=== PATIENT | female | born 1935 | race Caucasian/White ===

== ENCOUNTER 2022-06-25 09:52 | Inpatient (IN) ==
[2022-06-25] MEDS ORDERED: SODIUM CHLORIDE 0.9% 1,000 ML IV STA (11:40)
[2022-06-25 12:25] LABS: Basophils % 0.3 % (0.0-0.8); Eosinophils % 0.1 % (0.00-10.9); Hematocrit 31.4 VOL% (35.7-47.0); Hemoglobin 10.1 GM/DL (12.0-16.0); Immature Granulocytes % 0.9 %; Immature Granulocytes Absolute 0.09 #; Lymphocytes # 0.8 10*3/uL (1.4-4.0); Lymphocytes % 7.7 % (21.3-54.2); Mean Corpuscular HGB Conc 32.2 GM/DL (32-36); Mean Corpuscular Volume 91.5 FL (87-102); Mean Platelet Volume 10.5 FL (9.6-12.0); Monocytes # 0.7 10*3/uL (0.11-0.8); Monocytes % 7.5 % (1.7-12.7); Neutrophils % 83.5 % (38.7-73.9); Platelet Count 160 T/CUMM (130-400); Red Blood Count 3.43 MC/CUMM (3.8-5.5); Red Cell Distribution Width 15.3 % (9.3-17.3); White Blood Count 9.9 T/CUMM (4-12)
[2022-06-25 12:42] LABS: Albumin 2.3 G/DL (3.4-5.0); Calcium 9.1 MG/DL (8.5-10.1); Osmolality,Calculated 283.2 MOS/KG (273-304); Potassium 4.6 MMOL/L (3.5-5.1); Total Protein 5.9 G/DL (6.4-8.2)
[2022-06-25] MEDS ORDERED: ACETAMINOPHEN 325 MG TABLET PO PRN (13:43)
[2022-06-25 14:29] LABS: INR 1.2; PT Patient Result 12.9 SECS (10.1-12.1); Partial Thromboplastin Time 28.9 SECS (23.7-32.9)
[2022-06-25] MEDS: SODIUM CHLORIDE 0.9% 1,000 ML IV SCH (14:50)
[2022-06-25 17:16] LABS: Amylase,Body Fluid 47 U/L; Glucose,Pleural Fluid 88 MG/DL; LDH,Body Fluid 94 U/L; Total Protein,Body Fluid < 2.0 G/DL
[2022-06-25 19:05] LABS: Bacteria,Urine Few /HPF (Few); Squamous Epithelial Cell,Urine Occasional /HPF (0-10)
[2022-06-25 19:08] LABS: Bilirubin,Urine Negative (Negative); Blood, Urine Trace mg/dL (Negative); Glucose,Urine (UA) Negative (Negative); Ketones,Urine Negative (Negative); Nitrite,Urine Negative (Negative); Protein,Urine Negative (Negative); Urine Appearance Clear (Clear); Urine Color Yellow (Yellow); Urine Specific Gravity > 1.030 (1.001-1.035); Urine Urobilinogen 0.2 eU/dL (<2.0)
[2022-06-25] MEDS: DOCUSATE SODIUM 100 MG CAPSULE PO SCH (20:38)
[2022-06-26 06:32] LABS: Calcium 8.1 MG/DL (8.5-10.1); Osmolality,Calculated 284.1 MOS/KG (273-304)
[2022-06-26 07:07] LABS: Basophils % 0.2 % (0.0-0.8); Eosinophils # 0.2 10*3/uL (0.0-0.87); Eosinophils % 4.9 % (0.00-10.9); Hematocrit 23.9 VOL% (35.7-47.0); Immature Granulocytes % 0.4 %; Immature Granulocytes Absolute 0.02 #; Lymphocytes # 0.8 10*3/uL (1.4-4.0); Lymphocytes % 15.8 % (21.3-54.2); Mean Corpuscular HGB Conc 32.6 GM/DL (32-36); Mean Corpuscular Volume 90.5 FL (87-102); Mean Platelet Volume 10.4 FL (9.6-12.0); Monocytes # 0.4 10*3/uL (0.11-0.8); Monocytes % 7.8 % (1.7-12.7); Neutrophils % 70.9 % (38.7-73.9); Red Cell Distribution Width 15.1 % (9.3-17.3)
[2022-06-26 07:08] LABS: Hemoglobin 7.8 GM/DL (12.0-16.0); Platelet Count 110 T/CUMM (130-400); Red Blood Count 2.64 MC/CUMM (3.8-5.5); White Blood Count 4.7 T/CUMM (4-12)
[2022-06-26] MEDS: PANTOPRAZOLE 40 MG TABLET PO SCH (07:49)
[2022-06-26 08:06] LABS: Hematocrit 26.8 VOL% (35.7-47.0); Hemoglobin 8.5 GM/DL (12.0-16.0)
[2022-06-26] MEDS: METOPROLOL SUCCINATE XL 50 MG TABLET PO SCH (08:56)
[2022-06-26] MEDS: DEXTROSE 5% NACL 0.9% 1,000 ML IV SCH ×2 (08:58→20:10)
[2022-06-26] MEDS: DOCUSATE SODIUM 100 MG CAPSULE PO SCH ×2 (09:03→20:54)
[2022-06-26] MEDS: SODIUM CHLORIDE 0.9% 1,000 ML IV SCH ×2 (09:04)
[2022-06-27] MEDS: DEXTROSE 5% NACL 0.9% 1,000 ML IV SCH ×2 (04:38→15:33)
[2022-06-27] MEDS: PANTOPRAZOLE 40 MG TABLET PO SCH (05:44)
[2022-06-27 06:07] LABS: Basophils % 0.7 % (0.0-0.8); Eosinophils # 0.4 10*3/uL (0.0-0.87); Eosinophils % 8.5 % (0.00-10.9); Hematocrit 25.3 VOL% (35.7-47.0); Hemoglobin 8.1 GM/DL (12.0-16.0); Immature Granulocytes % 0.4 %; Immature Granulocytes Absolute 0.02 #; Lymphocytes # 0.8 10*3/uL (1.4-4.0); Lymphocytes % 16.6 % (21.3-54.2); Mean Platelet Volume 10.3 FL (9.6-12.0); Monocytes # 0.4 10*3/uL (0.11-0.8); Monocytes % 9.4 % (1.7-12.7); Neutrophils % 64.4 % (38.7-73.9); Platelet Count 125 T/CUMM (130-400); Red Blood Count 2.78 MC/CUMM (3.8-5.5); Red Cell Distribution Width 15.1 % (9.3-17.3); White Blood Count 4.6 T/CUMM (4-12)
[2022-06-27 06:23] LABS: Calcium 8.1 MG/DL (8.5-10.1); Potassium 3.6 MMOL/L (3.5-5.1)
[2022-06-27 08:52] LABS: Albumin 1.8 G/DL (3.4-5.0); Bilirubin,Direct 0.15 MG/DL (0.0-0.20); Bilirubin,Indirect 0.4 MG/DL (0.0-1.0); Bilirubin,Total 0.5 MG/DL (0.20-1.00); Total Protein 4.7 G/DL (6.4-8.2)
[2022-06-27] MEDS: METOPROLOL SUCCINATE XL 50 MG TABLET PO SCH (09:12)
[2022-06-27] MEDS: DOCUSATE SODIUM 100 MG CAPSULE PO SCH ×2 (09:20→21:19)
[2022-06-27] MEDS: ENOXAPARIN 30 MG/0.3 ML SYRINGE SUBCUT SCH (21:19)
[2022-06-28] MEDS: DEXTROSE 5% NACL 0.9% 1,000 ML IV SCH ×3 (01:11→09:15)
[2022-06-28] MEDS: PANTOPRAZOLE 40 MG TABLET PO SCH (05:31)
[2022-06-28 06:19] LABS: Basophils # 0.1 10*3/uL (0.0-0.2); Basophils % 0.8 % (0.0-0.8); Eosinophils # 0.6 10*3/uL (0.0-0.87); Eosinophils % 9.9 % (0.00-10.9); Hematocrit 28.4 VOL% (35.7-47.0); Hemoglobin 9.2 GM/DL (12.0-16.0); Immature Granulocytes % 0.8 %; Immature Granulocytes Absolute 0.05 #; Lymphocytes # 1.3 10*3/uL (1.4-4.0); Lymphocytes % 20.3 % (21.3-54.2); Mean Corpuscular HGB Conc 32.4 GM/DL (32-36); Mean Corpuscular Volume 90.7 FL (87-102); Mean Platelet Volume 9.8 FL (9.6-12.0); Monocytes # 0.5 10*3/uL (0.11-0.8); Monocytes % 7.5 % (1.7-12.7); Neutrophils % 60.7 % (38.7-73.9); Platelet Count 193 T/CUMM (130-400); Red Blood Count 3.13 MC/CUMM (3.8-5.5); Red Cell Distribution Width 15.4 % (9.3-17.3); White Blood Count 6.4 T/CUMM (4-12)
[2022-06-28 06:45] LABS: Calcium 8.1 MG/DL (8.5-10.1); Osmolality,Calculated 287.8 MOS/KG (273-304); Potassium 3.6 MMOL/L (3.5-5.1)
[2022-06-28] MEDS: DOCUSATE SODIUM 100 MG CAPSULE PO SCH ×2 (09:15→21:15)
[2022-06-28] MEDS: METOPROLOL SUCCINATE XL 50 MG TABLET PO SCH (09:15)
[2022-06-28] MEDS ORDERED: FUROSEMIDE 20 MG/2 ML VIAL IV ONE (14:00)
[2022-06-28] MEDS: ENOXAPARIN 30 MG/0.3 ML SYRINGE SUBCUT SCH (21:15)
[2022-06-29 05:28] LABS: Eosinophils # 0.3 10*3/uL (0.0-0.87); Eosinophils % 6.8 % (0.00-10.9); Hematocrit 26.5 VOL% (35.7-47.0); Hemoglobin 8.4 GM/DL (12.0-16.0); Immature Granulocytes % 0.5 %; Immature Granulocytes Absolute 0.02 #; Lymphocytes # 0.8 10*3/uL (1.4-4.0); Lymphocytes % 18.6 % (21.3-54.2); Mean Corpuscular HGB Conc 31.7 GM/DL (32-36); Mean Corpuscular Volume 92.3 FL (87-102); Mean Platelet Volume 9.7 FL (9.6-12.0); Monocytes # 0.4 10*3/uL (0.11-0.8); Monocytes % 8.5 % (1.7-12.7); Neutrophils % 64.6 % (38.7-73.9); Platelet Count 149 T/CUMM (130-400); Red Blood Count 2.87 MC/CUMM (3.8-5.5); Red Cell Distribution Width 15.4 % (9.3-17.3); White Blood Count 4.1 T/CUMM (4-12)
[2022-06-29 05:46] LABS: Calcium 8.2 MG/DL (8.5-10.1); Osmolality,Calculated 289.5 MOS/KG (273-304); Potassium 3.8 MMOL/L (3.5-5.1)
[2022-06-29] MEDS: PANTOPRAZOLE 40 MG TABLET PO SCH (05:55)
[2022-06-29] MEDS: METOPROLOL SUCCINATE XL 50 MG TABLET PO SCH (09:09)
[2022-06-29] MEDS: DOCUSATE SODIUM 100 MG CAPSULE PO SCH ×2 (09:09→21:29)
[2022-06-29] MEDS: ENOXAPARIN 30 MG/0.3 ML SYRINGE SUBCUT SCH (21:29)
[2022-06-30 05:32] LABS: Calcium 8.4 MG/DL (8.5-10.1); Osmolality,Calculated 286.7 MOS/KG (273-304); Potassium 4.6 MMOL/L (3.5-5.1)
[2022-06-30] MEDS: PANTOPRAZOLE 40 MG TABLET PO SCH (05:41)
[2022-06-30 06:06] LABS: Basophils % 0.6 % (0.0-0.8); Eosinophils # 0.2 10*3/uL (0.0-0.87); Eosinophils % 5.8 % (0.00-10.9); Hematocrit 25.5 VOL% (35.7-47.0); Hemoglobin 8.2 GM/DL (12.0-16.0); Immature Granulocytes % 0.3 %; Immature Granulocytes Absolute 0.01 #; Lymphocytes # 0.7 10*3/uL (1.4-4.0); Lymphocytes % 19.8 % (21.3-54.2); Mean Corpuscular HGB Conc 32.2 GM/DL (32-36); Mean Corpuscular Volume 92.4 FL (87-102); Mean Platelet Volume 9.7 FL (9.6-12.0); Monocytes # 0.3 10*3/uL (0.11-0.8); Monocytes % 7.8 % (1.7-12.7); Neutrophils % 65.7 % (38.7-73.9); Platelet Count 136 T/CUMM (130-400); Red Blood Count 2.76 MC/CUMM (3.8-5.5); Red Cell Distribution Width 15.4 % (9.3-17.3); White Blood Count 3.4 T/CUMM (4-12)
[2022-06-30] MEDS: METOPROLOL SUCCINATE XL 50 MG TABLET PO SCH (09:03)
[2022-06-30] MEDS: DOCUSATE SODIUM 100 MG CAPSULE PO SCH ×2 (09:03→21:44)
[2022-06-30] MEDS: ENOXAPARIN 30 MG/0.3 ML SYRINGE SUBCUT SCH (21:44)
[2022-07-01] MEDS: PANTOPRAZOLE 40 MG TABLET PO SCH (06:46)
[2022-07-01 07:51] LABS: M. Tuberculosis PCR Result Negative (Negative); M. Tuberculosis PCR Source PLEURAL FLUID
[2022-07-01] MEDS: METOPROLOL SUCCINATE XL 50 MG TABLET PO SCH (08:11)
[2022-07-01] MEDS: DOCUSATE SODIUM 100 MG CAPSULE PO SCH ×2 (10:53→21:26)
[2022-07-02 02:24] LABS: Arterial Base Excess iSTAT -7 MMOL/L (-2.5-2.5); Arterial Bicarbonate iSTAT 17.4 MMOL/L (20-26); Arterial O2 Saturation iSTAT 99 % (95-100); Arterial PCO2 iSTAT 31 MM HG (35-48); Arterial PO2 iSTAT 121 MM HG (80-95); Arterial Total CO2 iSTAT 18 MMO/L (23-27); Arterial pH iSTAT 7.358 (7.35-7.45)
[2022-07-02] MEDS: PANTOPRAZOLE 40 MG TABLET PO SCH (05:40)
[2022-07-02 05:43] LABS: Basophils % 0.8 % (0.0-0.8); Eosinophils # 0.3 10*3/uL (0.0-0.87); Eosinophils % 6.8 % (0.00-10.9); Hematocrit 25.5 VOL% (35.7-47.0); Immature Granulocytes % 0.5 %; Immature Granulocytes Absolute 0.02 #; Lymphocytes # 0.8 10*3/uL (1.4-4.0); Lymphocytes % 21.4 % (21.3-54.2); Mean Corpuscular HGB Conc 31.4 GM/DL (32-36); Mean Corpuscular Volume 92.4 FL (87-102); Mean Platelet Volume 9.9 FL (9.6-12.0); Monocytes # 0.3 10*3/uL (0.11-0.8); Monocytes % 7.6 % (1.7-12.7); Neutrophils % 62.9 % (38.7-73.9); Platelet Count 148 T/CUMM (130-400); Red Blood Count 2.76 MC/CUMM (3.8-5.5); Red Cell Distribution Width 15.4 % (9.3-17.3); White Blood Count 3.7 T/CUMM (4-12)
[2022-07-02 06:00] LABS: Calcium 8.6 MG/DL (8.5-10.1); Osmolality,Calculated 292.3 MOS/KG (273-304); Potassium 3.5 MMOL/L (3.5-5.1)
[2022-07-02] MEDS ORDERED: propofoL 200 MG/20 ML VIAL IV ONE ×2 (07:32→10:24)
[2022-07-02] MEDS ORDERED: LIDOCAINE 2% 5 ML VIAL ONE ×2 (07:32→10:24)
[2022-07-02] MEDS ORDERED: ETOMIDATE 20 MG/10 ML VIAL IV ONE (07:32)
[2022-07-02] MEDS: LACTATED RINGERS 1,000 ML IV SCH ×2 (08:00→14:43)
[2022-07-02] MEDS: METOPROLOL SUCCINATE XL 50 MG TABLET PO SCH (09:05)
[2022-07-02] MEDS: DOCUSATE SODIUM 100 MG CAPSULE PO SCH ×2 (09:05→21:08)
[2022-07-02] MEDS ORDERED: ETOMIDATE 40 MG/20 ML VIAL IV ONE (10:24)
[2022-07-02] MEDS: ONDANSETRON 4 MG/2 ML VIAL IV PRN (11:25)
[2022-07-02] MEDS: PIPERACILLIN/TAZOBACTAM 3,375 MG in SODIUM CHLORIDE 0.9% 100 ML IV SCH ×2 (11:50→22:54)
[2022-07-02 12:24] LABS: Basophils % 0.4 % (0.0-0.8); Eosinophils # 0.3 10*3/uL (0.0-0.87); Eosinophils % 4.2 % (0.00-10.9); Hematocrit 34.6 VOL% (35.7-47.0); Hemoglobin 10.8 GM/DL (12.0-16.0); Immature Granulocytes % 0.3 %; Immature Granulocytes Absolute 0.02 #; Mean Corpuscular HGB Conc 31.2 GM/DL (32-36); Mean Corpuscular Volume 93.5 FL (87-102); Mean Platelet Volume 9.7 FL (9.6-12.0); Monocytes # 0.2 10*3/uL (0.11-0.8); Monocytes % 2.7 % (1.7-12.7); Neutrophils % 77.4 % (38.7-73.9); Platelet Count 221 T/CUMM (130-400); Red Cell Distribution Width 15.4 % (9.3-17.3); White Blood Count 6.9 T/CUMM (4-12)
[2022-07-02] MEDS ORDERED: MORPHINE 2 MG/1 ML SYRINGE IV ONE (14:15)
[2022-07-03] MEDS: LACTATED RINGERS 1,000 ML IV SCH ×2 (04:01→08:49)
[2022-07-03 05:17] LABS: Basophils % 0.2 % (0.0-0.8); Eosinophils # 0.1 10*3/uL (0.0-0.87); Hematocrit 28.2 VOL% (35.7-47.0); Hemoglobin 8.7 GM/DL (12.0-16.0); Immature Granulocytes % 0.6 %; Immature Granulocytes Absolute 0.06 #; Lymphocytes # 1.1 10*3/uL (1.4-4.0); Mean Corpuscular HGB Conc 30.9 GM/DL (32-36); Mean Platelet Volume 10.3 FL (9.6-12.0); Monocytes # 0.6 10*3/uL (0.11-0.8); Monocytes % 5.6 % (1.7-12.7); Neutrophils % 81.6 % (38.7-73.9); Platelet Count 179 T/CUMM (130-400); Red Cell Distribution Width 15.6 % (9.3-17.3)
[2022-07-03] MEDS: PANTOPRAZOLE 40 MG TABLET PO SCH (06:07)
[2022-07-03] MEDS: METOPROLOL SUCCINATE XL 50 MG TABLET PO SCH (09:46)
[2022-07-03] MEDS: DOCUSATE SODIUM 100 MG CAPSULE PO SCH ×2 (09:46→21:33)
[2022-07-03 10:11] LABS: Hepatitis B Core IgM Quant 0.14 Index; Hepatitis B Surface Ag Quant < 0.10 Index; Hepatitis B Surface Ag Result Non-Reactive (NonReactive); Hepatitis C Virus Ab Quant 0.07 Index; Hepatitis C Virus Ab Result Non-Reactive (NonReactive)
[2022-07-03] MEDS: PIPERACILLIN/TAZOBACTAM 3,375 MG in SODIUM CHLORIDE 0.9% 100 ML IV SCH ×2 (10:42→22:01)
[2022-07-03] MEDS ORDERED: DEXTROSE 10% 250 ML BAG IV PRN (15:16)
[2022-07-03] MEDS ORDERED: ZINC/COPPER/MANGANESE/SELENIUM 1 ML, MULTIVITAMIN INJ 10 ML in AMINO ACIDS/DEXT/LYTES 5... IV SCH (17:00)
[2022-07-03] MEDS ORDERED: DEXTROSE 10% 1,000 ML IV PRN (17:00)
[2022-07-03] MEDS: INSULIN REGULAR 100 UNIT/ML SUBCUT SCH (17:59)
[2022-07-04] MEDS: INSULIN REGULAR 100 UNIT/ML SUBCUT SCH ×5 (00:24→23:41)
[2022-07-04] MEDS: PANTOPRAZOLE 40 MG TABLET PO SCH (05:59)
[2022-07-04 06:03] LABS: Basophils % 0.3 % (0.0-0.8); Eosinophils # 0.1 10*3/uL (0.0-0.87); Eosinophils % 1.9 % (0.00-10.9); Hematocrit 23.6 VOL% (35.7-47.0); Hemoglobin 7.4 GM/DL (12.0-16.0); Immature Granulocytes % 0.5 %; Immature Granulocytes Absolute 0.03 #; Lymphocytes # 0.6 10*3/uL (1.4-4.0); Lymphocytes % 9.8 % (21.3-54.2); Mean Corpuscular HGB Conc 31.4 GM/DL (32-36); Mean Corpuscular Volume 92.5 FL (87-102); Mean Platelet Volume 10.4 FL (9.6-12.0); Monocytes # 0.5 10*3/uL (0.11-0.8); Neutrophils % 80.5 % (38.7-73.9); Platelet Count 122 T/CUMM (130-400); Red Blood Count 2.55 MC/CUMM (3.8-5.5); Red Cell Distribution Width 15.4 % (9.3-17.3); White Blood Count 6.4 T/CUMM (4-12)
[2022-07-04 06:18] LABS: Phosphorous 4.2 MG/DL (2.5-4.9)
[2022-07-04] MEDS ORDERED: SODIUM CHLORIDE 0.9% 1,000 ML IV PRN (07:01)
[2022-07-04] MEDS ORDERED: ALBUMIN 25% 50 GM/200 ML VIAL IV ONE (07:02)
[2022-07-04] MEDS: DOCUSATE SODIUM 100 MG CAPSULE PO SCH ×2 (08:17→21:39)
[2022-07-04] MEDS: METOPROLOL SUCCINATE XL 50 MG TABLET PO SCH (08:17)
[2022-07-04] MEDS: LACTATED RINGERS 1,000 ML IV SCH (08:26)
[2022-07-04 08:47] LABS: Alanine Aminotransferase < 9 U/L (13-56); Albumin 1.6 G/DL (3.4-5.0); Alkaline Phosphatase 50 U/L (45-117); Aspartate Amino Transferase 14 U/L (0-37); Blood Urea Nitrogen 62 MG/DL (7-18); Calcium 8.2 MG/DL (8.5-10.1); Carbon Dioxide 21 MMOL/L (21-32); Chloride 116 MMOL/L (98-107); Glucose 143 MG/DL (74-106); Potassium 3.5 MMOL/L (3.5-5.1); Sodium 143 MMOL/L (136-145); Total Protein 4.7 G/DL (6.4-8.2)
[2022-07-04] MEDS ORDERED: LIDOCAINE 2% 5 ML VIAL ONE (08:48)
[2022-07-04] MEDS ORDERED: ETOMIDATE 20 MG/10 ML VIAL IV ONE (08:48)
[2022-07-04] MEDS ORDERED: ONDANSETRON 4 MG/2 ML VIAL ONE (09:00)
[2022-07-04] MEDS: PANTOPRAZOLE 40 MG VIAL IV SCH ×2 (10:32→21:43)
[2022-07-04] MEDS: metroNIDAZOLE INJ 500 MG/100 ML PREMIX IV SCH ×2 (10:32→21:43)
[2022-07-04] MEDS: PIPERACILLIN/TAZOBACTAM 3,375 MG in SODIUM CHLORIDE 0.9% 100 ML IV SCH ×2 (10:33→22:35)
[2022-07-04] MEDS ORDERED: MAGNESIUM SULF RIDER 4 GM/100 ML PREMIX IV ONE (13:00)
[2022-07-04] MEDS: FAT EMULSION 20% 250 ML IV SCH (13:34)
[2022-07-04] MEDS ORDERED: [UNRECOGNIZED DRUG - OTHER] IV SCH (17:00)
[2022-07-04] MEDS ORDERED: COPPER IV SCH (17:00)
[2022-07-04] MEDS ORDERED: MULTIVITAMIN IV SCH (17:00)
[2022-07-04] MEDS ORDERED: SELENIUM IV SCH (17:00)
[2022-07-04] MEDS ORDERED: MANGANESE IV SCH (17:00)
[2022-07-04] MEDS ORDERED: ZINC IV SCH (17:00)
[2022-07-04] MEDS ORDERED: ZINC/COPPER/MANGANESE/SELENIUM 1 ML, MULTIVITAMIN INJ 10 ML in AMINO ACIDS/DEXT/LYTES 5... IV SCH (17:00)
[2022-07-05] MEDS: metroNIDAZOLE INJ 500 MG/100 ML PREMIX IV SCH ×3 (05:07→20:00)
[2022-07-05 06:31] LABS: Bilirubin,Total 0.9 MG/DL (0.20-1.00); Calcium 8.5 MG/DL (8.5-10.1); Osmolality,Calculated 305.8 MOS/KG (273-304); Potassium 3.4 MMOL/L (3.5-5.1); Total Protein 4.8 G/DL (6.4-8.2)
[2022-07-05] MEDS: INSULIN REGULAR 100 UNIT/ML SUBCUT SCH ×3 (06:36→17:36)
[2022-07-05 06:43] LABS: Calcium 8.5 MG/DL (8.5-10.1); Osmolality,Calculated 307.7 MOS/KG (273-304); Potassium 3.4 MMOL/L (3.5-5.1)
[2022-07-05 07:26] LABS: Basophils % 0.5 % (0.0-0.8); Eosinophils # 0.3 10*3/uL (0.0-0.87); Eosinophils % 4.4 % (0.00-10.9); Hematocrit 25.9 VOL% (35.7-47.0); Hemoglobin 8.4 GM/DL (12.0-16.0); Immature Granulocytes % 0.5 %; Immature Granulocytes Absolute 0.03 #; Lymphocytes # 0.5 10*3/uL (1.4-4.0); Lymphocytes % 8.8 % (21.3-54.2); Mean Corpuscular HGB Conc 32.4 GM/DL (32-36); Mean Corpuscular Volume 92.2 FL (87-102); Monocytes # 0.3 10*3/uL (0.11-0.8); Monocytes % 5.6 % (1.7-12.7); Neutrophils % 80.2 % (38.7-73.9); Platelet Count 101 T/CUMM (130-400); Red Blood Count 2.81 MC/CUMM (3.8-5.5); White Blood Count 5.7 T/CUMM (4-12)
[2022-07-05] MEDS: LACTATED RINGERS 1,000 ML IV SCH (08:58)
[2022-07-05] MEDS: HYOSCYAMINE 0.5 MG/1 ML AMP IV SCH ×2 (09:12→14:20)
[2022-07-05] MEDS: PIPERACILLIN/TAZOBACTAM 3,375 MG in SODIUM CHLORIDE 0.9% 100 ML IV SCH ×2 (09:12→21:00)
[2022-07-05] MEDS: PANTOPRAZOLE 40 MG VIAL IV SCH ×2 (09:12→21:00)
[2022-07-05] MEDS: DOCUSATE SODIUM 100 MG CAPSULE PO SCH ×2 (09:18→21:56)
[2022-07-05] MEDS: METOPROLOL SUCCINATE XL 50 MG TABLET PO SCH (09:18)
[2022-07-05] MEDS: FAT EMULSION 20% 250 ML IV SCH (14:20)
[2022-07-05] MEDS: ZINC/COPPER/MANGANESE/SELENIUM 1 ML, MULTIVITAMIN INJ 10 ML, POTASSIUM CHLORIDE INJ 40 ... IV SCH (16:15)
[2022-07-05] MEDS: DICYCLOMINE 20 MG/2 ML AMP IM SCH (20:00)
[2022-07-06] MEDS: INSULIN REGULAR 100 UNIT/ML SUBCUT SCH ×5 (01:10→23:38)
[2022-07-06] MEDS: DICYCLOMINE 20 MG/2 ML AMP IM SCH ×3 (02:00→14:35)
[2022-07-06] MEDS: metroNIDAZOLE INJ 500 MG/100 ML PREMIX IV SCH ×3 (04:12→20:16)
[2022-07-06 05:28] LABS: Basophils % 0.5 % (0.0-0.8); Eosinophils # 0.3 10*3/uL (0.0-0.87); Eosinophils % 4.9 % (0.00-10.9); Hemoglobin 9.3 GM/DL (12.0-16.0); Immature Granulocytes % 0.5 %; Immature Granulocytes Absolute 0.03 #; Lymphocytes # 0.5 10*3/uL (1.4-4.0); Lymphocytes % 8.1 % (21.3-54.2); Mean Corpuscular HGB Conc 32.1 GM/DL (32-36); Mean Corpuscular Volume 92.4 FL (87-102); Mean Platelet Volume 11.2 FL (9.6-12.0); Monocytes # 0.4 10*3/uL (0.11-0.8); Monocytes % 6.1 % (1.7-12.7); Neutrophils % 79.9 % (38.7-73.9); Platelet Count 100 T/CUMM (130-400); Red Blood Count 3.14 MC/CUMM (3.8-5.5); Red Cell Distribution Width 15.3 % (9.3-17.3); White Blood Count 5.9 T/CUMM (4-12)
[2022-07-06 05:58] LABS: Albumin 1.9 G/DL (3.4-5.0); Bilirubin,Total 0.6 MG/DL (0.20-1.00); Calcium 8.9 MG/DL (8.5-10.1); Potassium 3.5 MMOL/L (3.5-5.1); Total Protein 5.3 G/DL (6.4-8.2)
[2022-07-06] MEDS: METOPROLOL SUCCINATE XL 50 MG TABLET PO SCH (08:23)
[2022-07-06] MEDS: DOCUSATE SODIUM 100 MG CAPSULE PO SCH ×2 (10:02→20:41)
[2022-07-06] MEDS: PIPERACILLIN/TAZOBACTAM 3,375 MG in SODIUM CHLORIDE 0.9% 100 ML IV SCH ×2 (10:10→21:22)
[2022-07-06] MEDS: PANTOPRAZOLE 40 MG VIAL IV SCH ×2 (10:10→21:22)
[2022-07-06] MEDS ORDERED: LIDOCAINE 2% VISCOUS 100 ML BOTTLE ONE (10:11)
[2022-07-06] MEDS: LACTATED RINGERS 1,000 ML IV SCH (10:59)
[2022-07-06] MEDS ORDERED: ALBUTEROL 2.5 MG/3 ML NEB RESP TX PRN (12:00)
[2022-07-06] MEDS: ALBUTEROL 2.5 MG/3 ML NEB RESP TX SCH ×2 (13:15→19:10)
[2022-07-06] MEDS: FAT EMULSION 20% 250 ML IV SCH (16:16)
[2022-07-06] MEDS: HYOSCYAMINE 0.5 MG/1 ML AMP IV SCH ×2 (16:16→21:22)
[2022-07-06] MEDS: ZINC/COPPER/MANGANESE/SELENIUM 1 ML, MULTIVITAMIN INJ 10 ML, POTASSIUM CHLORIDE INJ 40 ... IV SCH (16:18)
[2022-07-07] MEDS: HYOSCYAMINE 0.5 MG/1 ML AMP IV SCH ×4 (03:30→20:05)
[2022-07-07] MEDS: metroNIDAZOLE INJ 500 MG/100 ML PREMIX IV SCH ×3 (03:30→20:03)
[2022-07-07] MEDS: INSULIN REGULAR 100 UNIT/ML SUBCUT SCH ×4 (06:01→23:40)
[2022-07-07 06:13] LABS: Basophils # 0.1 10*3/uL (0.0-0.2); Basophils % 0.7 % (0.0-0.8); Eosinophils # 0.4 10*3/uL (0.0-0.87); Eosinophils % 6.3 % (0.00-10.9); Hematocrit 32.2 VOL% (35.7-47.0); Hemoglobin 10.1 GM/DL (12.0-16.0); Immature Granulocytes % 0.7 %; Immature Granulocytes Absolute 0.05 #; Lymphocytes # 0.6 10*3/uL (1.4-4.0); Mean Corpuscular HGB Conc 31.4 GM/DL (32-36); Mean Corpuscular Volume 94.2 FL (87-102); Mean Platelet Volume 11.2 FL (9.6-12.0); Monocytes # 0.6 10*3/uL (0.11-0.8); Monocytes % 8.2 % (1.7-12.7); Neutrophils % 76.1 % (38.7-73.9); Platelet Count 118 T/CUMM (130-400); Red Blood Count 3.42 MC/CUMM (3.8-5.5); Red Cell Distribution Width 15.3 % (9.3-17.3); White Blood Count 6.8 T/CUMM (4-12)
[2022-07-07 06:32] LABS: Albumin 1.9 G/DL (3.4-5.0); Bilirubin,Total 0.9 MG/DL (0.20-1.00); Calcium 9.1 MG/DL (8.5-10.1); Osmolality,Calculated 305.1 MOS/KG (273-304); Total Protein 5.5 G/DL (6.4-8.2)
[2022-07-07] MEDS: ALBUTEROL 2.5 MG/3 ML NEB RESP TX SCH ×3 (07:16→18:56)
[2022-07-07] MEDS: METOPROLOL SUCCINATE XL 50 MG TABLET PO SCH (08:20)
[2022-07-07] MEDS: DOCUSATE SODIUM 100 MG CAPSULE PO SCH ×2 (08:21→20:15)
[2022-07-07] MEDS: PIPERACILLIN/TAZOBACTAM 3,375 MG in SODIUM CHLORIDE 0.9% 100 ML IV SCH ×2 (08:31→20:06)
[2022-07-07] MEDS: PANTOPRAZOLE 40 MG VIAL IV SCH ×2 (08:35→20:01)
[2022-07-07] MEDS: ONDANSETRON 4 MG/2 ML VIAL IV PRN ×3 (08:35→20:02)
[2022-07-07] MEDS ORDERED: METOCLOPRAMIDE 10 MG/2 ML VIAL IV PRN (09:18)
[2022-07-07] MEDS: PROCHLORPERAZINE 10 MG/2 ML VIAL IV PRN ×2 (09:55→17:09)
[2022-07-07] MEDS: FAT EMULSION 20% 250 ML IV SCH (15:00)
[2022-07-07] MEDS: ZINC/COPPER/MANGANESE/SELENIUM 1 ML, MULTIVITAMIN INJ 10 ML, POTASSIUM CHLORIDE INJ 40 ... IV SCH (17:09)
[2022-07-08] MEDS: HYOSCYAMINE 0.5 MG/1 ML AMP IV SCH ×4 (02:08→20:10)
[2022-07-08] MEDS: metroNIDAZOLE INJ 500 MG/100 ML PREMIX IV SCH ×3 (03:31→20:05)
[2022-07-08 03:54] LABS: Basophils # 0.1 10*3/uL (0.0-0.2); Basophils % 0.8 % (0.0-0.8); Eosinophils # 0.5 10*3/uL (0.0-0.87); Eosinophils % 7.7 % (0.00-10.9); Hematocrit 28.7 VOL% (35.7-47.0); Immature Granulocytes % 0.8 %; Immature Granulocytes Absolute 0.05 #; Lymphocytes # 0.6 10*3/uL (1.4-4.0); Lymphocytes % 9.4 % (21.3-54.2); Mean Corpuscular HGB Conc 31.4 GM/DL (32-36); Mean Corpuscular Volume 94.7 FL (87-102); Monocytes # 0.6 10*3/uL (0.11-0.8); Monocytes % 9.9 % (1.7-12.7); Neutrophils % 71.4 % (38.7-73.9); Platelet Count 111 T/CUMM (130-400); Red Blood Count 3.03 MC/CUMM (3.8-5.5); Red Cell Distribution Width 15.7 % (9.3-17.3)
[2022-07-08 04:14] LABS: Albumin 1.8 G/DL (3.4-5.0); Bilirubin,Total 0.9 MG/DL (0.20-1.00); Osmolality,Calculated 309.8 MOS/KG (273-304); Potassium 4.4 MMOL/L (3.5-5.1); Total Protein 5.2 G/DL (6.4-8.2)
[2022-07-08] MEDS: INSULIN REGULAR 100 UNIT/ML SUBCUT SCH ×3 (05:19→18:26)
[2022-07-08] MEDS: ALBUTEROL 2.5 MG/3 ML NEB RESP TX SCH ×3 (07:41→19:44)
[2022-07-08] MEDS: PANTOPRAZOLE 40 MG VIAL IV SCH ×2 (08:26→20:10)
[2022-07-08] MEDS: PIPERACILLIN/TAZOBACTAM 3,375 MG in SODIUM CHLORIDE 0.9% 100 ML IV SCH ×2 (08:26→22:07)
[2022-07-08] MEDS: DOCUSATE SODIUM 100 MG CAPSULE PO SCH ×3 (08:26→20:11)
[2022-07-08] MEDS: METOPROLOL SUCCINATE XL 50 MG TABLET PO SCH (08:26)
[2022-07-08] MEDS ORDERED: FUROSEMIDE 20 MG/2 ML VIAL IV ONE (13:57)
[2022-07-08] MEDS: ALBUMIN 5% 25 GM/500 ML VIAL IV SCH ×2 (14:10→21:15)
[2022-07-08] MEDS: FAT EMULSION 20% 250 ML IV SCH (14:44)
[2022-07-08] MEDS: ZINC/COPPER/MANGANESE/SELENIUM 1 ML, MULTIVITAMIN INJ 10 ML, POTASSIUM CHLORIDE INJ 40 ... IV SCH (17:45)
[2022-07-08] MEDS: ONDANSETRON 4 MG/2 ML VIAL IV PRN (23:31)
[2022-07-09] MEDS: INSULIN REGULAR 100 UNIT/ML SUBCUT SCH ×4 (01:31→19:09)
[2022-07-09] MEDS: HYOSCYAMINE 0.5 MG/1 ML AMP IV SCH ×4 (04:36→21:39)
[2022-07-09] MEDS: metroNIDAZOLE INJ 500 MG/100 ML PREMIX IV SCH ×3 (04:55→20:38)
[2022-07-09 05:05] LABS: Basophils % 0.6 % (0.0-0.8); Eosinophils # 0.4 10*3/uL (0.0-0.87); Eosinophils % 8.2 % (0.00-10.9); Hematocrit 26.8 VOL% (35.7-47.0); Hemoglobin 8.3 GM/DL (12.0-16.0); Immature Granulocytes % 0.6 %; Immature Granulocytes Absolute 0.03 #; Lymphocytes # 0.5 10*3/uL (1.4-4.0); Lymphocytes % 10.9 % (21.3-54.2); Mean Corpuscular Volume 95.7 FL (87-102); Mean Platelet Volume 11.5 FL (9.6-12.0); Monocytes # 0.6 10*3/uL (0.11-0.8); Monocytes % 11.3 % (1.7-12.7); Neutrophils % 68.4 % (38.7-73.9); Platelet Count 113 T/CUMM (130-400); Red Cell Distribution Width 15.7 % (9.3-17.3); White Blood Count 4.9 T/CUMM (4-12)
[2022-07-09 06:14] LABS: Albumin 2.3 G/DL (3.4-5.0); Calcium 9.3 MG/DL (8.5-10.1); Potassium 4.6 MMOL/L (3.5-5.1); Total Protein 5.4 G/DL (6.4-8.2)
[2022-07-09] MEDS: ALBUMIN 5% 25 GM/500 ML VIAL IV SCH (06:18)
[2022-07-09] MEDS: ALBUTEROL 2.5 MG/3 ML NEB RESP TX SCH ×3 (07:15→19:15)
[2022-07-09] MEDS: DOCUSATE SODIUM 100 MG CAPSULE PO SCH ×2 (08:24→21:39)
[2022-07-09] MEDS: PANTOPRAZOLE 40 MG VIAL IV SCH ×2 (08:25→21:40)
[2022-07-09] MEDS: METOPROLOL SUCCINATE XL 50 MG TABLET PO SCH (08:26)
[2022-07-09] MEDS: PIPERACILLIN/TAZOBACTAM 3,375 MG in SODIUM CHLORIDE 0.9% 100 ML IV SCH (08:26)
[2022-07-09] MEDS: FAT EMULSION 20% 250 ML IV SCH (14:53)
[2022-07-09] MEDS: SULFAMETH/TRIMETH INJ 160 MG in DEXTROSE 5% 250 ML IV SCH ×2 (15:07→21:53)
[2022-07-09] MEDS ORDERED: FUROSEMIDE 40 MG/4 ML VIAL IV ONE (15:33)
[2022-07-09] MEDS: ZINC/COPPER/MANGANESE/SELENIUM 1 ML, MULTIVITAMIN INJ 10 ML, POTASSIUM CHLORIDE INJ 40 ... IV SCH (17:30)
[2022-07-10] MEDS: INSULIN REGULAR 100 UNIT/ML SUBCUT SCH ×4 (00:42→18:12)
[2022-07-10] MEDS: HYOSCYAMINE 0.5 MG/1 ML AMP IV SCH ×5 (03:00→21:16)
[2022-07-10] MEDS: SULFAMETH/TRIMETH INJ 160 MG in DEXTROSE 5% 250 ML IV SCH ×4 (03:00→22:25)
[2022-07-10] MEDS: metroNIDAZOLE INJ 500 MG/100 ML PREMIX IV SCH ×3 (04:01→21:15)
[2022-07-10 05:50] LABS: Basophils % 0.9 % (0.0-0.8); Eosinophils # 0.4 10*3/uL (0.0-0.87); Eosinophils % 9.1 % (0.00-10.9); Hemoglobin 8.6 GM/DL (12.0-16.0); Immature Granulocytes % 0.9 %; Immature Granulocytes Absolute 0.04 #; Lymphocytes # 0.5 10*3/uL (1.4-4.0); Lymphocytes % 12.1 % (21.3-54.2); Mean Corpuscular HGB Conc 30.7 GM/DL (32-36); Mean Corpuscular Volume 94.9 FL (87-102); Mean Platelet Volume 12.1 FL (9.6-12.0); Monocytes # 0.5 10*3/uL (0.11-0.8); Monocytes % 10.9 % (1.7-12.7); Neutrophils % 66.1 % (38.7-73.9); Platelet Count 103 T/CUMM (130-400); Red Blood Count 2.95 MC/CUMM (3.8-5.5); Red Cell Distribution Width 15.8 % (9.3-17.3); White Blood Count 4.4 T/CUMM (4-12)
[2022-07-10 06:21] LABS: Albumin 2.4 G/DL (3.4-5.0); Bilirubin,Total 0.9 MG/DL (0.20-1.00); Calcium 9.3 MG/DL (8.5-10.1); Osmolality,Calculated 312.1 MOS/KG (273-304); Potassium 4.4 MMOL/L (3.5-5.1); Total Protein 5.5 G/DL (6.4-8.2)
[2022-07-10] MEDS: ALBUTEROL 2.5 MG/3 ML NEB RESP TX SCH ×3 (07:35→19:49)
[2022-07-10] MEDS: SODIUM CHLORIDE 0.45% 1,000 ML IV SCH (09:53)
[2022-07-10] MEDS: PANTOPRAZOLE 40 MG VIAL IV SCH ×2 (09:54→21:16)
[2022-07-10] MEDS: DOCUSATE SODIUM 100 MG CAPSULE PO SCH ×2 (09:54→21:16)
[2022-07-10] MEDS: METOPROLOL SUCCINATE XL 50 MG TABLET PO SCH (09:55)
[2022-07-10] MEDS: FAT EMULSION 20% 250 ML IV SCH (14:42)
[2022-07-10] MEDS: ZINC/COPPER/MANGANESE/SELENIUM 1 ML, MULTIVITAMIN INJ 10 ML, POTASSIUM CHLORIDE INJ 40 ... IV SCH (17:49)
[2022-07-11] MEDS: INSULIN REGULAR 100 UNIT/ML SUBCUT SCH ×5 (00:23→23:57)
[2022-07-11] MEDS: HYOSCYAMINE 0.5 MG/1 ML AMP IV SCH ×5 (03:30→23:01)
[2022-07-11] MEDS: SULFAMETH/TRIMETH INJ 160 MG in DEXTROSE 5% 250 ML IV SCH ×3 (04:21→22:42)
[2022-07-11 05:45] LABS: Basophils % 0.5 % (0.0-0.8); Eosinophils # 0.3 10*3/uL (0.0-0.87); Eosinophils % 5.6 % (0.00-10.9); Hematocrit 29.8 VOL% (35.7-47.0); Hemoglobin 9.2 GM/DL (12.0-16.0); Immature Granulocytes % 1.2 %; Immature Granulocytes Absolute 0.07 #; Lymphocytes # 0.6 10*3/uL (1.4-4.0); Lymphocytes % 10.5 % (21.3-54.2); Mean Corpuscular HGB Conc 30.9 GM/DL (32-36); Mean Corpuscular Volume 95.2 FL (87-102); Monocytes # 0.8 10*3/uL (0.11-0.8); Monocytes % 14.2 % (1.7-12.7); Platelet Count 127 T/CUMM (130-400); Red Blood Count 3.13 MC/CUMM (3.8-5.5); Red Cell Distribution Width 15.9 % (9.3-17.3); White Blood Count 5.7 T/CUMM (4-12)
[2022-07-11 06:02] LABS: Albumin 2.4 G/DL (3.4-5.0); Bilirubin,Total 0.9 MG/DL (0.20-1.00); Calcium 9.1 MG/DL (8.5-10.1); Osmolality,Calculated 304.7 MOS/KG (273-304); Potassium 4.7 MMOL/L (3.5-5.1); Total Protein 5.7 G/DL (6.4-8.2)
[2022-07-11] MEDS: metroNIDAZOLE INJ 500 MG/100 ML PREMIX IV SCH ×2 (06:05→11:41)
[2022-07-11] MEDS: ALBUTEROL 2.5 MG/3 ML NEB RESP TX SCH ×3 (07:45→19:32)
[2022-07-11] MEDS: PANTOPRAZOLE 40 MG VIAL IV SCH ×2 (08:58→21:05)
[2022-07-11] MEDS: DOCUSATE SODIUM 100 MG CAPSULE PO SCH ×2 (09:01→21:34)
[2022-07-11] MEDS: METOPROLOL SUCCINATE XL 50 MG TABLET PO SCH (09:01)
[2022-07-11] MEDS ORDERED: ENOXAPARIN 30 MG/0.3 ML SYRINGE SUBCUT SCH (09:30)
[2022-07-11] MEDS: FAT EMULSION 20% 250 ML IV SCH (15:43)
[2022-07-11] MEDS: SODIUM CHLORIDE 0.45% 1,000 ML IV SCH (15:55)
[2022-07-11] MEDS: ENOXAPARIN 30 MG/0.3 ML SYRINGE SUBCUT SCH (21:34)
[2022-07-11] MEDS: ZINC/COPPER/MANGANESE/SELENIUM 1 ML, MULTIVITAMIN INJ 10 ML, POTASSIUM CHLORIDE INJ 40 ... IV SCH (22:42)
[2022-07-12] MEDS: SULFAMETH/TRIMETH INJ 160 MG in DEXTROSE 5% 250 ML IV SCH ×4 (00:01→21:30)
[2022-07-12] MEDS: SODIUM CHLORIDE 0.45% 1,000 ML IV SCH ×3 (00:14→21:00)
[2022-07-12] MEDS: HYOSCYAMINE 0.5 MG/1 ML AMP IV SCH (03:14)
[2022-07-12 05:36] LABS: Basophils # 0.1 10*3/uL (0.0-0.2); Basophils % 0.8 % (0.0-0.8); Eosinophils # 0.4 10*3/uL (0.0-0.87); Eosinophils % 4.7 % (0.00-10.9); Hematocrit 28.3 VOL% (35.7-47.0); Hemoglobin 8.9 GM/DL (12.0-16.0); Immature Granulocytes % 1.4 %; Immature Granulocytes Absolute 0.11 #; Lymphocytes # 0.8 10*3/uL (1.4-4.0); Lymphocytes % 10.5 % (21.3-54.2); Mean Corpuscular HGB Conc 31.4 GM/DL (32-36); Mean Platelet Volume 11.8 FL (9.6-12.0); Neutrophils % 69.6 % (38.7-73.9); Platelet Count 153 T/CUMM (130-400); Red Blood Count 3.01 MC/CUMM (3.8-5.5); Red Cell Distribution Width 16.3 % (9.3-17.3); White Blood Count 7.6 T/CUMM (4-12)
[2022-07-12 05:53] LABS: Albumin 2.2 G/DL (3.4-5.0); Bilirubin,Total 0.9 MG/DL (0.20-1.00); Calcium 9.3 MG/DL (8.5-10.1); Osmolality,Calculated 302.8 MOS/KG (273-304); Potassium 5.2 MMOL/L (3.5-5.1); Total Protein 5.7 G/DL (6.4-8.2)
[2022-07-12] MEDS: INSULIN REGULAR 100 UNIT/ML SUBCUT SCH ×4 (05:59→23:38)
[2022-07-12] MEDS: ALBUTEROL 2.5 MG/3 ML NEB RESP TX SCH ×3 (07:57→19:05)
[2022-07-12] MEDS: METOPROLOL SUCCINATE XL 50 MG TABLET PO SCH (08:29)
[2022-07-12] MEDS: DOCUSATE SODIUM 100 MG CAPSULE PO SCH (08:29)
[2022-07-12] MEDS: PANTOPRAZOLE 40 MG VIAL IV SCH ×2 (08:31→21:29)
[2022-07-12] MEDS: ONDANSETRON 4 MG/2 ML VIAL IV PRN ×2 (08:39→15:29)
[2022-07-12] MEDS: FAT EMULSION 20% 250 ML IV SCH (15:16)
[2022-07-12] MEDS: MULTIVITAMIN INJ 10 ML, ZINC/COPPER/MANGANESE/SELENIUM 1 ML in AMINO ACIDS/DEXT/LYTES 5... IV SCH (16:07)
[2022-07-12] MEDS: ENOXAPARIN 30 MG/0.3 ML SYRINGE SUBCUT SCH (20:59)
[2022-07-13] MEDS: SULFAMETH/TRIMETH INJ 160 MG in DEXTROSE 5% 250 ML IV SCH ×4 (01:39→21:34)
[2022-07-13 05:32] LABS: Basophils # 0.1 10*3/uL (0.0-0.2); Basophils % 0.8 % (0.0-0.8); Eosinophils # 0.4 10*3/uL (0.0-0.87); Eosinophils % 3.5 % (0.00-10.9); Hemoglobin 8.7 GM/DL (12.0-16.0); Immature Granulocytes % 1.3 %; Immature Granulocytes Absolute 0.13 #; Lymphocytes % 9.5 % (21.3-54.2); Mean Corpuscular HGB Conc 32.2 GM/DL (32-36); Mean Corpuscular Volume 93.8 FL (87-102); Mean Platelet Volume 11.8 FL (9.6-12.0); Monocytes # 1.3 10*3/uL (0.11-0.8); Monocytes % 12.9 % (1.7-12.7); Platelet Count 159 T/CUMM (130-400); Red Blood Count 2.88 MC/CUMM (3.8-5.5); Red Cell Distribution Width 16.4 % (9.3-17.3)
[2022-07-13] MEDS: INSULIN REGULAR 100 UNIT/ML SUBCUT SCH ×3 (05:39→17:48)
[2022-07-13 05:55] LABS: Albumin 2.1 G/DL (3.4-5.0); Bilirubin,Total 0.8 MG/DL (0.20-1.00); Calcium 9.5 MG/DL (8.5-10.1); Osmolality,Calculated 299.1 MOS/KG (273-304); Potassium 5.2 MMOL/L (3.5-5.1); Total Protein 5.6 G/DL (6.4-8.2)
[2022-07-13] MEDS: ALBUTEROL 2.5 MG/3 ML NEB RESP TX SCH ×3 (07:31→19:37)
[2022-07-13] MEDS: PANTOPRAZOLE 40 MG VIAL IV SCH ×2 (09:28→21:24)
[2022-07-13] MEDS ORDERED: hydrALAZINE 20 MG/1 ML VIAL IV PRN (09:28)
[2022-07-13] MEDS: SODIUM CHLORIDE 0.45% 1,000 ML IV SCH ×2 (15:20→18:07)
[2022-07-13] MEDS: MULTIVITAMIN INJ 10 ML, ZINC/COPPER/MANGANESE/SELENIUM 1 ML in AMINO ACIDS/DEXT/LYTES 5... IV SCH (17:47)
[2022-07-13] MEDS: FAT EMULSION 20% 250 ML IV SCH (17:47)
[2022-07-13] MEDS: ENOXAPARIN 30 MG/0.3 ML SYRINGE SUBCUT SCH (21:16)
[2022-07-14] MEDS: INSULIN REGULAR 100 UNIT/ML SUBCUT SCH ×5 (00:29→23:50)
[2022-07-14] MEDS: SULFAMETH/TRIMETH INJ 160 MG in DEXTROSE 5% 250 ML IV SCH ×4 (03:32→22:43)
[2022-07-14 06:31] LABS: Basophils # 0.1 10*3/uL (0.0-0.2); Basophils % 0.6 % (0.0-0.8); Eosinophils # 0.4 10*3/uL (0.0-0.87); Eosinophils % 3.5 % (0.00-10.9); Immature Granulocytes % 1.5 %; Immature Granulocytes Absolute 0.19 #; Lymphocytes # 1.1 10*3/uL (1.4-4.0); Lymphocytes % 8.6 % (21.3-54.2); Mean Corpuscular HGB Conc 32.1 GM/DL (32-36); Mean Corpuscular Volume 93.6 FL (87-102); Mean Platelet Volume 11.6 FL (9.6-12.0); Monocytes # 1.3 10*3/uL (0.11-0.8); Monocytes % 10.2 % (1.7-12.7); Neutrophils % 75.6 % (38.7-73.9); Platelet Count 164 T/CUMM (130-400); Red Blood Count 2.99 MC/CUMM (3.8-5.5); Red Cell Distribution Width 16.7 % (9.3-17.3); White Blood Count 12.6 T/CUMM (4-12)
[2022-07-14 06:50] LABS: Albumin 2.1 G/DL (3.4-5.0); Bilirubin,Total 0.7 MG/DL (0.20-1.00); Calcium 9.5 MG/DL (8.5-10.1); Osmolality,Calculated 294.7 MOS/KG (273-304); Potassium 5.1 MMOL/L (3.5-5.1); Total Protein 5.9 G/DL (6.4-8.2)
[2022-07-14] MEDS: ALBUTEROL 2.5 MG/3 ML NEB RESP TX SCH ×3 (07:26→19:30)
[2022-07-14] MEDS: PANTOPRAZOLE 40 MG VIAL IV SCH ×2 (09:31→21:31)
[2022-07-14] MEDS: ONDANSETRON 4 MG/2 ML VIAL IV PRN (09:32)
[2022-07-14] MEDS: FUROSEMIDE 40 MG/4 ML VIAL IV SCH ×2 (14:23→21:31)
[2022-07-14] MEDS: FAT EMULSION 20% 250 ML IV SCH (15:44)
[2022-07-14] MEDS: MULTIVITAMIN INJ 10 ML, ZINC/COPPER/MANGANESE/SELENIUM 1 ML in AMINO ACIDS/DEXT/LYTES 5... IV SCH (17:40)
[2022-07-14] MEDS: ENOXAPARIN 30 MG/0.3 ML SYRINGE SUBCUT SCH (22:40)
[2022-07-15] MEDS: SULFAMETH/TRIMETH INJ 160 MG in DEXTROSE 5% 250 ML IV SCH ×4 (03:26→21:53)
[2022-07-15] MEDS: INSULIN REGULAR 100 UNIT/ML SUBCUT SCH ×3 (05:26→17:20)
[2022-07-15 05:28] LABS: Basophils # 0.1 10*3/uL (0.0-0.2); Basophils % 0.3 % (0.0-0.8); Eosinophils # 0.3 10*3/uL (0.0-0.87); Eosinophils % 2.2 % (0.00-10.9); Hematocrit 26.8 VOL% (35.7-47.0); Hemoglobin 8.6 GM/DL (12.0-16.0); Lymphocytes # 0.9 10*3/uL (1.4-4.0); Lymphocytes % 6.2 % (21.3-54.2); Mean Corpuscular HGB Conc 32.1 GM/DL (32-36); Mean Corpuscular Volume 94.7 FL (87-102); Monocytes # 1.2 10*3/uL (0.11-0.8); Monocytes % 8.3 % (1.7-12.7); NRBC # 0.02 10*3/uL; Platelet Count 195 T/CUMM (130-400); Red Blood Count 2.83 MC/CUMM (3.8-5.5); Red Cell Distribution Width 16.9 % (9.3-17.3); White Blood Count 14.7 T/CUMM (4-12)
[2022-07-15] MEDS: FUROSEMIDE 40 MG/4 ML VIAL IV SCH ×3 (05:28→21:52)
[2022-07-15 05:50] LABS: Albumin 2.2 G/DL (3.4-5.0); Bilirubin,Total 0.7 MG/DL (0.20-1.00); Calcium 9.4 MG/DL (8.5-10.1); Osmolality,Calculated 294.7 MOS/KG (273-304); Potassium 5.5 MMOL/L (3.5-5.1); Total Protein 5.7 G/DL (6.4-8.2)
[2022-07-15] MEDS: PANTOPRAZOLE 40 MG VIAL IV SCH ×2 (08:59→21:52)
[2022-07-15] MEDS: ONDANSETRON 4 MG/2 ML VIAL IV PRN (08:59)
[2022-07-15] MEDS: ALBUTEROL 2.5 MG/3 ML NEB RESP TX SCH ×3 (14:03→19:42)
[2022-07-15] MEDS: FAT EMULSION 20% 250 ML IV SCH (14:12)
[2022-07-15] MEDS: MULTIVITAMIN INJ 10 ML, ZINC/COPPER/MANGANESE/SELENIUM 1 ML in AMINO ACIDS/DEXT/LYTES 5... IV SCH (17:45)
[2022-07-15] MEDS: ENOXAPARIN 30 MG/0.3 ML SYRINGE SUBCUT SCH (21:52)
[2022-07-16] MEDS: INSULIN REGULAR 100 UNIT/ML SUBCUT SCH ×4 (01:42→17:58)
[2022-07-16] MEDS: SULFAMETH/TRIMETH INJ 160 MG in DEXTROSE 5% 250 ML IV SCH (03:39)
[2022-07-16] MEDS: FUROSEMIDE 40 MG/4 ML VIAL IV SCH (05:34)
[2022-07-16 06:38] LABS: Basophils % 0.3 % (0.0-0.8); Eosinophils # 0.3 10*3/uL (0.0-0.87); Eosinophils % 1.7 % (0.00-10.9); Hematocrit 26.1 VOL% (35.7-47.0); Hemoglobin 8.1 GM/DL (12.0-16.0); Immature Granulocytes % 2.4 %; Immature Granulocytes Absolute 0.35 #; Lymphocytes # 0.8 10*3/uL (1.4-4.0); Lymphocytes % 5.7 % (21.3-54.2); Mean Corpuscular Volume 96.7 FL (87-102); Mean Platelet Volume 11.9 FL (9.6-12.0); Monocytes # 1.2 10*3/uL (0.11-0.8); Monocytes % 7.9 % (1.7-12.7); NRBC # 0.02 10*3/uL; Platelet Count 194 T/CUMM (130-400); Red Cell Distribution Width 17.1 % (9.3-17.3); White Blood Count 14.7 T/CUMM (4-12)
[2022-07-16 06:57] LABS: Bilirubin,Total 0.7 MG/DL (0.20-1.00); Calcium 9.6 MG/DL (8.5-10.1); Osmolality,Calculated 290.2 MOS/KG (273-304); Potassium 5.6 MMOL/L (3.5-5.1); Total Protein 5.7 G/DL (6.4-8.2)
[2022-07-16] MEDS ORDERED: SODIUM POLYSTYRENE SULFATE 15 GM/60 ML BOTTLE PO ONE (07:16)
[2022-07-16] MEDS ORDERED: SODIUM POLYSTYRENE SULFATE 15 GM/60 ML BOTTLE RECTAL ONE (07:26)
[2022-07-16] MEDS: ALBUTEROL 2.5 MG/3 ML NEB RESP TX SCH ×3 (07:45→19:35)
[2022-07-16] MEDS ORDERED: FUROSEMIDE 40 MG/4 ML VIAL IV SCH (08:00)
[2022-07-16] MEDS: PIPERACILLIN/TAZOBACTAM 3,375 MG in SODIUM CHLORIDE 0.9% 100 ML IV SCH ×2 (09:49→21:05)
[2022-07-16] MEDS: PANTOPRAZOLE 40 MG VIAL IV SCH ×2 (09:49→21:04)
[2022-07-16] MEDS: ONDANSETRON 4 MG/2 ML VIAL IV PRN ×2 (10:52→15:26)
[2022-07-16 13:12] LABS: Calcium 9.4 MG/DL (8.5-10.1); Osmolality,Calculated 293.1 MOS/KG (273-304)
[2022-07-16] MEDS ORDERED: PHENYLEPHRINE DRIP 0 MG/0 ML PREMIX IV ONE (14:49)
[2022-07-16 14:53] LABS: Bacteria,Urine Few /HPF (Few); Hyaline Casts,Urine 9 /LPF (0-3); Mucus,Urine Occasional /LPF (Occasional); RBC,Urine 88 /HPF (0-4); Squamous Epithelial Cell,Urine Occasional /HPF (0-10)
[2022-07-16 14:54] LABS: Bilirubin,Urine Negative (Negative); Blood, Urine Large mg/dL (Negative); Glucose,Urine (UA) Negative (Negative); Ketones,Urine Negative (Negative); Nitrite,Urine Negative (Negative); Protein,Urine Negative (Negative); Urine Appearance Clear (Clear); Urine Color Yellow (Yellow); Urine Specific Gravity 1.025 (1.001-1.035); Urine Urobilinogen 0.2 eU/dL (<2.0)
[2022-07-16] MEDS: DOBUTamine 500 MG/250 ML PREMIX IV PRN (15:03)
[2022-07-16] MEDS: FAT EMULSION 20% 250 ML IV SCH (15:54)
[2022-07-16 16:47] LABS: Osmolality,Calculated 293.1 MOS/KG (273-304); Potassium 5.4 MMOL/L (3.5-5.1)
[2022-07-16] MEDS ORDERED: SODIUM BICARBONATE 50 MEQ/50 ML VIAL IV ONE (16:54)
[2022-07-16] MEDS ORDERED: [UNRECOGNIZED DRUG - OTHER] IV SCH (17:00)
[2022-07-16] MEDS ORDERED: MANGANESE IV SCH (17:00)
[2022-07-16] MEDS ORDERED: ZINC IV SCH (17:00)
[2022-07-16] MEDS ORDERED: COPPER IV SCH (17:00)
[2022-07-16] MEDS ORDERED: MULTIVITAMIN IV SCH (17:00)
[2022-07-16] MEDS ORDERED: SELENIUM IV SCH (17:00)
[2022-07-16] MEDS ORDERED: METOCLOPRAMIDE 10 MG/2 ML VIAL IV ONE (17:15)
[2022-07-17] MEDS: INSULIN REGULAR 100 UNIT/ML SUBCUT SCH ×4 (00:50→19:18)
[2022-07-17] MEDS: DOBUTamine 500 MG/250 ML PREMIX IV PRN ×6 (01:07→22:26)
[2022-07-17 05:39] LABS: Basophils % 0.3 % (0.0-0.8); Eosinophils # 0.1 10*3/uL (0.0-0.87); Eosinophils % 1.8 % (0.00-10.9); Hematocrit 21.2 VOL% (35.7-47.0); Hemoglobin 6.7 GM/DL (12.0-16.0); Immature Granulocytes Absolute 0.07 #; Lymphocytes # 0.5 10*3/uL (1.4-4.0); Lymphocytes % 6.1 % (21.3-54.2); Mean Corpuscular HGB Conc 31.6 GM/DL (32-36); Mean Corpuscular Volume 96.4 FL (87-102); Mean Platelet Volume 11.4 FL (9.6-12.0); Monocytes # 0.5 10*3/uL (0.11-0.8); Monocytes % 7.1 % (1.7-12.7); NRBC # 0.02 10*3/uL; Neutrophils % 83.7 % (38.7-73.9); Platelet Count 103 T/CUMM (130-400); Red Cell Distribution Width 17.2 % (9.3-17.3); White Blood Count 7.4 T/CUMM (4-12)
[2022-07-17] MEDS ORDERED: SODIUM CHLORIDE 0.9% 1,000 ML IV PRN (05:56)
[2022-07-17 06:01] LABS: Calcium 8.6 MG/DL (8.5-10.1); Osmolality,Calculated 295.1 MOS/KG (273-304); Potassium 4.9 MMOL/L (3.5-5.1)
[2022-07-17 06:05] LABS: Albumin 1.8 G/DL (3.4-5.0); Bilirubin,Total 0.7 MG/DL (0.20-1.00); Calcium 8.9 MG/DL (8.5-10.1); Osmolality,Calculated 300.8 MOS/KG (273-304); Total Protein 4.7 G/DL (6.4-8.2)
[2022-07-17] MEDS ORDERED: SODIUM BICARBONATE 50 MEQ/50 ML VIAL IV ONE ×3 (06:29→13:27)
[2022-07-17] MEDS: ALBUTEROL 2.5 MG/3 ML NEB RESP TX SCH ×3 (07:33→19:21)
[2022-07-17] MEDS ORDERED: FUROSEMIDE 40 MG/4 ML VIAL IV ONE (07:40)
[2022-07-17] MEDS ORDERED: ALBUMIN 25% 25 GM/100 ML VIAL IV ONE (07:40)
[2022-07-17] MEDS ORDERED: ROCURONIUM 100 MG/10 ML VIAL IV ONE ×2 (08:29→08:43)
[2022-07-17] MEDS ORDERED: ETOMIDATE 20 MG/10 ML VIAL IV ONE ×2 (08:29→08:43)
[2022-07-17] MEDS ORDERED: PHENYLEPHRINE DRIP 40 MG/250 ML PREMIX IV ONE (08:46)
[2022-07-17] MEDS: PHENYLEPHRINE DRIP 40 MG/250 ML PREMIX IV PRN ×4 (08:58→12:59)
[2022-07-17 09:38] LABS: Arterial Base Excess iSTAT -10 MMOL/L (-2.5-2.5); Arterial Bicarbonate iSTAT 18.3 MMOL/L (20-26); Arterial O2 Saturation iSTAT 100 % (95-100); Arterial PCO2 iSTAT 53 MM HG (35-48); Arterial PO2 iSTAT 413 MM HG (80-95); Arterial Total CO2 iSTAT 20 MMO/L (23-27); Arterial pH iSTAT 7.145 (7.35-7.45)
[2022-07-17] MEDS: PANTOPRAZOLE 40 MG VIAL IV SCH ×2 (10:49→21:14)
[2022-07-17] MEDS: PIPERACILLIN/TAZOBACTAM 3,375 MG in SODIUM CHLORIDE 0.9% 100 ML IV SCH ×2 (10:49→21:17)
[2022-07-17 11:59] LABS: Arterial Base Excess iSTAT -12 MMOL/L (-2.5-2.5); Arterial Bicarbonate iSTAT 15.1 MMOL/L (20-26); Arterial O2 Saturation iSTAT 96 % (95-100); Arterial PCO2 iSTAT 37 MM HG (35-48); Arterial PO2 iSTAT 96 MM HG (80-95); Arterial Total CO2 iSTAT 16 MMO/L (23-27); Arterial pH iSTAT 7.215 (7.35-7.45)
[2022-07-17] MEDS: PHENYLEPHRINE INJ 160 MG in SODIUM CHLORIDE 0.9% 234 ML IV PRN ×2 (13:53→18:50)
[2022-07-17] MEDS: FAT EMULSION 20% 250 ML IV SCH (13:57)
[2022-07-17] MEDS ORDERED: ACETYLCYSTEINE 20% 800 MG/4 ML VIAL RESP TX SCH (15:00)
[2022-07-17] MEDS: SELENIUM IV SCH (17:50)
[2022-07-17] MEDS: MANGANESE IV SCH (17:50)
[2022-07-17] MEDS: SODIUM ACETATE IV SCH (17:50)
[2022-07-17] MEDS: [UNRECOGNIZED DRUG - OTHER] IV SCH (17:50)
[2022-07-17] MEDS: ZINC IV SCH (17:50)
[2022-07-17] MEDS: COPPER IV SCH (17:50)
[2022-07-17] MEDS: MULTIVITAMIN IV SCH (17:50)
[2022-07-17] MEDS ORDERED: SODIUM CHLORIDE 0.9% 500 ML IV ONE (18:57)
[2022-07-17 19:26] LABS: Basophils % 0.1 % (0.0-0.8); Eosinophils # 0.3 10*3/uL (0.0-0.87); Eosinophils % 2.1 % (0.00-10.9); Hematocrit 24.1 VOL% (35.7-47.0); Hemoglobin 7.8 GM/DL (12.0-16.0); Immature Granulocytes % 0.9 %; Immature Granulocytes Absolute 0.11 #; Lymphocytes # 0.5 10*3/uL (1.4-4.0); Lymphocytes % 3.8 % (21.3-54.2); Mean Corpuscular HGB Conc 32.4 GM/DL (32-36); Mean Corpuscular Volume 94.9 FL (87-102); Mean Platelet Volume 11.3 FL (9.6-12.0); Monocytes # 0.6 10*3/uL (0.11-0.8); Monocytes % 4.6 % (1.7-12.7); NRBC # 0.02 10*3/uL; Neutrophils % 88.5 % (38.7-73.9); Platelet Count 141 T/CUMM (130-400); Red Blood Count 2.54 MC/CUMM (3.8-5.5); Red Cell Distribution Width 16.9 % (9.3-17.3); White Blood Count 12.2 T/CUMM (4-12)
[2022-07-17] MEDS: DORNASE ALFA 2.5 MG/2.5 ML VIAL RESP TX SCH (19:31)
[2022-07-17 20:08] LABS: Band Neutrophils 2 % (0-10); Eosinophils 3 % (0-10); Lymphocytes 5 % (20-55); Reactive Lymphocytes Slight; Total Cells Counted 100
[2022-07-17 20:10] LABS: Anisocytosis Slight
[2022-07-17 20:12] LABS: Platelet Estimate Normal
[2022-07-17] MEDS ORDERED: MIDAZOLAM 100 MG in SODIUM CHLORIDE 0.9% 80 ML IV PRN (21:37)
[2022-07-17 23:16] LABS: ABG Base Excess -10.4 MMOL/L (-2.5-2.5); ABG Oxygen Saturation 98.3 % (95-100); ABG PH 7.255 (7.35-7.45); ABG TCO2 15.2 MMOL/L (23-27)
[2022-07-18] MEDS: INSULIN REGULAR 100 UNIT/ML SUBCUT SCH ×5 (00:02→23:54)
[2022-07-18] MEDS ORDERED: SODIUM BICARBONATE 50 MEQ/50 ML VIAL IV ONE (00:07)
[2022-07-18] MEDS: PHENYLEPHRINE INJ 160 MG in SODIUM CHLORIDE 0.9% 234 ML IV PRN ×5 (00:33→21:06)
[2022-07-18 03:52] LABS: ABG Base Excess -9.6 MMOL/L (-2.5-2.5); ABG HCO3 16.7 MMOL/L (20-26); ABG Oxygen Saturation 98.2 % (95-100); ABG PCO2 38.9 MM HG (35-48)
[2022-07-18 03:57] LABS: Basophils % 0.2 % (0.0-0.8); Eosinophils # 0.3 10*3/uL (0.0-0.87); Eosinophils % 2.8 % (0.00-10.9); Hematocrit 23.4 VOL% (35.7-47.0); Hemoglobin 7.4 GM/DL (12.0-16.0); Immature Granulocytes % 1.1 %; Immature Granulocytes Absolute 0.13 #; Lymphocytes # 0.5 10*3/uL (1.4-4.0); Lymphocytes % 4.4 % (21.3-54.2); Mean Corpuscular HGB Conc 31.6 GM/DL (32-36); Mean Corpuscular Volume 94.7 FL (87-102); Mean Platelet Volume 11.7 FL (9.6-12.0); Monocytes # 0.5 10*3/uL (0.11-0.8); Monocytes % 4.7 % (1.7-12.7); NRBC # 0.05 10*3/uL; Neutrophils % 86.8 % (38.7-73.9); Platelet Count 138 T/CUMM (130-400); Red Blood Count 2.47 MC/CUMM (3.8-5.5); Red Cell Distribution Width 17.2 % (9.3-17.3); White Blood Count 11.4 T/CUMM (4-12)
[2022-07-18 04:14] LABS: Albumin 1.8 G/DL (3.4-5.0); Bilirubin,Total 0.8 MG/DL (0.20-1.00); Calcium 8.3 MG/DL (8.5-10.1); Osmolality,Calculated 295.1 MOS/KG (273-304); Potassium 4.3 MMOL/L (3.5-5.1); Total Protein 4.7 G/DL (6.4-8.2)
[2022-07-18 04:15] LABS: Band Neutrophils 2 % (0-10); Calcium 8.1 MG/DL (8.5-10.1); Eosinophils 1 % (0-10); Lymphocytes 4 % (20-55); Osmolality,Calculated 298.8 MOS/KG (273-304); Potassium 4.4 MMOL/L (3.5-5.1); Total Cells Counted 100
[2022-07-18 04:16] LABS: Microcytosis 1+
[2022-07-18 04:17] LABS: Platelet Estimate Adequate
[2022-07-18] MEDS: DOBUTamine 500 MG/250 ML PREMIX IV PRN ×5 (04:40→22:44)
[2022-07-18] MEDS ORDERED: NOREPINEPHRINE 4 MG/4 ML VIAL IV ONE ×2 (06:45→17:58)
[2022-07-18] MEDS ORDERED: SODIUM CHLORIDE 0.9% 250 ML IV ONE ×2 (06:45→11:10)
[2022-07-18] MEDS: NOREPINEPHRINE 8 MG in SODIUM CHLORIDE 0.9% 242 ML IV PRN ×4 (06:53→18:01)
[2022-07-18] MEDS: ALBUTEROL 2.5 MG/3 ML NEB RESP TX SCH ×3 (07:30→19:24)
[2022-07-18] MEDS: DORNASE ALFA 2.5 MG/2.5 ML VIAL RESP TX SCH ×2 (07:38→19:32)
[2022-07-18] MEDS: PANTOPRAZOLE 40 MG VIAL IV SCH ×2 (08:38→21:15)
[2022-07-18] MEDS: PIPERACILLIN/TAZOBACTAM 3,375 MG in SODIUM CHLORIDE 0.9% 100 ML IV SCH ×2 (09:54→21:17)
[2022-07-18] MEDS ORDERED: ALBUMIN 25% 25 GM/100 ML VIAL IV ONE (11:14)
[2022-07-18] MEDS: FAT EMULSION 20% 250 ML IV SCH (14:36)
[2022-07-18 17:28] LABS: Cholesterol < 50 MG/DL (50-200); HDL Cholesterol 11 MG/DL (40-60); Risk Ratio 4.55; Triglycerides 48 MG/DL (2-150); VLDL Cholesterol 9.6 MG/DL
[2022-07-18] MEDS: MULTIVITAMIN IV SCH (18:01)
[2022-07-18] MEDS: COPPER IV SCH (18:01)
[2022-07-18] MEDS: MANGANESE IV SCH (18:01)
[2022-07-18] MEDS: ZINC IV SCH (18:01)
[2022-07-18] MEDS: SELENIUM IV SCH (18:01)
[2022-07-18] MEDS: SODIUM ACETATE IV SCH (18:01)
[2022-07-18] MEDS: [UNRECOGNIZED DRUG - OTHER] IV SCH (18:01)
[2022-07-18] MEDS: METOCLOPRAMIDE 10 MG/2 ML VIAL IV SCH (19:34)
[2022-07-18] MEDS ORDERED: METOCLOPRAMIDE 10 MG/2 ML VIAL IV PRN (20:00)
[2022-07-18] MEDS: NOREPINEPHRINE 16 MG in SODIUM CHLORIDE 0.9% 234 ML IV PRN (20:05)
[2022-07-18] MEDS: ENOXAPARIN 30 MG/0.3 ML SYRINGE SUBCUT SCH (21:16)
[2022-07-19] MEDS: NOREPINEPHRINE 16 MG in SODIUM CHLORIDE 0.9% 234 ML IV PRN ×3 (00:05→09:42)
[2022-07-19] MEDS: METOCLOPRAMIDE 10 MG/2 ML VIAL IV SCH ×3 (02:14→14:17)
[2022-07-19] MEDS: PHENYLEPHRINE INJ 160 MG in SODIUM CHLORIDE 0.9% 234 ML IV PRN ×3 (02:26→13:43)
[2022-07-19 03:54] LABS: ABG Base Excess -11.3 MMOL/L (-2.5-2.5); ABG HCO3 15.5 MMOL/L (20-26); ABG Oxygen Saturation 96.3 % (95-100); ABG PCO2 32.8 MM HG (35-48); ABG PH 7.264 (7.35-7.45); ABG PO2 87.2 MM HG (80-95); ABG TCO2 13.6 MMOL/L (23-27)
[2022-07-19 04:13] LABS: Albumin 2.3 G/DL (3.4-5.0); Bilirubin,Total 2.2 MG/DL (0.20-1.00); Calcium 8.2 MG/DL (8.5-10.1); Osmolality,Calculated 292.4 MOS/KG (273-304); Potassium 4.5 MMOL/L (3.5-5.1); Total Protein 5.7 G/DL (6.4-8.2)
[2022-07-19 04:15] LABS: Basophils % 0.2 % (0.0-0.8); Eosinophils # 0.5 10*3/uL (0.0-0.87); Eosinophils % 2.5 % (0.00-10.9); Hematocrit 32.4 VOL% (35.7-47.0); Hemoglobin 10.7 GM/DL (12.0-16.0); Immature Granulocytes % 3.2 %; Immature Granulocytes Absolute 0.68 #; Lymphocytes % 4.7 % (21.3-54.2); Mean Corpuscular Volume 93.4 FL (87-102); Mean Platelet Volume 11.9 FL (9.6-12.0); Monocytes # 1.2 10*3/uL (0.11-0.8); Monocytes % 5.7 % (1.7-12.7); NRBC # 0.17 10*3/uL; Neutrophils % 83.7 % (38.7-73.9); Platelet Count 216 T/CUMM (130-400); Red Blood Count 3.47 MC/CUMM (3.8-5.5); Red Cell Distribution Width 17.4 % (9.3-17.3); White Blood Count 21.2 T/CUMM (4-12)
[2022-07-19 04:31] LABS: Band Neutrophils 1 % (0-10); Eosinophils 2 % (0-10); Lymphocytes 8 % (20-55); Platelet Estimate Adequate; Total Cells Counted 100
[2022-07-19] MEDS: INSULIN REGULAR 100 UNIT/ML SUBCUT SCH ×2 (05:00→11:38)
[2022-07-19] MEDS ORDERED: GLUCAGON 1 MG VIAL IM PRN (07:03)
[2022-07-19] MEDS ORDERED: DEXTROSE 10% 250 ML BAG IV PRN (07:03)
[2022-07-19] MEDS: ALBUTEROL 2.5 MG/3 ML NEB RESP TX SCH ×3 (07:43→19:26)
[2022-07-19] MEDS: DORNASE ALFA 2.5 MG/2.5 ML VIAL RESP TX SCH (07:51)
[2022-07-19] MEDS: PANTOPRAZOLE 40 MG VIAL IV SCH (08:49)
[2022-07-19] MEDS ORDERED: HEPARIN 5,000 UNIT/1 ML VIAL SUBCUT SCH (09:00)
[2022-07-19] MEDS: PIPERACILLIN/TAZOBACTAM 3,375 MG in SODIUM CHLORIDE 0.9% 100 ML IV SCH (10:10)
[2022-07-19 14:32] VITALS: BP 118/44
[2022-07-19] MEDS: MORPHINE 2 MG/1 ML SYRINGE IV PRN ×3 (14:59→17:24)
== END 2022-07-19 18:10 | disposition expired | DRG 981 ==
LOC: N.ED 09:52 → N.5E 13:01 → SUATTDRO 13:01 → N.5E 13:40 → N.CC 07-06 13:57 → N.TELES 07-09 13:40 → N.TELEN 07-11 12:49 → N.ICU 07-16 14:19
PROVIDERS: ADMIT Internal Medicine; ATTEND Family Medicine